=== PATIENT | female | born 1960 | race Caucasian/White ===

== ENCOUNTER → 2019-12-05 | Outpatient (CLI) | payer BC ==
[~2019-12-05] MED LIST: ALBUTEROL0.09 MG/A2 INH; AUGMENTIN 875875 MG PO; DIFLUCAN150 MG PO; LEXAPRO5 MG PO; PREDNICOT20 MG PO; VENLAFAXINE HYD75 M3 PO
== END | disposition home or self-care (01) ==
LOC: COVID19 10:57
DX: Z03.818 Encounter for observation for suspected exposure to other biological agents ruled out (principal)